=== PATIENT | male | born 1985 | race Hispanic/Latino ===

== ENCOUNTER 2019-01-18 10:41 | Inpatient (IN) | payer OTHER ==
[~2019-01-18] VITALS: Ht 190.5 cm; Wt 129.7 kg
[2019-01-18 11:25] LABS: APPEARANCE,URINE Clear (CLEAR); BILIRUBIN,URINE Negative (NEGATIVE); COLOR,URINE Yellow (YELLOW); GLUCOSE, URINE (UA) >=1000 mg/dL (NEGATIVE); KETONES,URINE >=80 mg/dL (NEGATIVE); LEUKOCYTE ESTERASE ,URINE Negative (NEGATIVE); NITRATE,URINE Negative (NEGATIVE); OCCULT BLOOD,URINE Trace (NEGATIVE); PH,URINE 5.5 (5.0-8.0); PROTEIN,URINE POS 1+ mg/dL (NEGATIVE); UROBILINOGEN,URINE 0.2 mg/dL (0.2-1.0)
[2019-01-18 11:37] LABS: BASOPHILS % (AUTO) 0.9 % (0.0-5.0); EOSINOPHILS % (AUTO) 0.7 % (0.0-8.0); HEMATOCRIT 48.9 % (42-54); LYMPHOCYTES % (AUTO) 29.9 % (21.0-51.0); MEAN CORPUSCULAR HGB CONC 34.8 g/dL (32.0-36.0); MEAN CORPUSCULAR VOLUME 86.2 fL (79-99); MONOCYTES % (AUTO) 9.1 % (3.0-13.0); NEUTROPHILS % (AUTO) 59.4 % (40.0-77.0); PLATELET COUNT (AUTO) 211 K/uL (130-400); RED BLOOD CELL COUNT(AUTO) 5.67 MIL/uL (4.50-6.20); RED CELL DISTRIBUTION WIDTH 13.8 % (11.0-15.5); WHITE BLOOD COUNT (AUTO) 8.6 K/uL (4.8-10.8)
[2019-01-18 11:43] LABS: BACTERIA,URINE Few /HPF (None Seen); RBC,URINE 0-1 /HPF (0-1)
[2019-01-18 11:44] LABS: SQUAMOUS EPITHELIAL CELL,UR 0-2 /HPF (0-2); WBC,URINE 0-1 /HPF (0-1)
[2019-01-18 12:01] LABS: ALBUMIN 4.7 g/dL (3.5-5.0); BILIRUBIN,TOTAL 1.8 mg/dL (0.2-1.0); CREATININE 1.1 mg/dL (0.5-1.5); POTASSIUM 3.6 mmol/L (3.5-5.1); TOTAL PROTEIN, SERUM 8.5 g/dL (6.0-8.3)
[2019-01-18 13:13] LABS: ABG OXYGEN SATURATION 71.2 % (95.0-99.0); BASE EXCESS,VENOUS BLOOD GAS -3.7 (-2.0-3.0); HCO3,VENOUS BLOOD GAS 21.1 (21.0-28.0); PCO2,VENOUS BLOOD GAS 38 (35-48); PH,VENOUS BLOOD GAS 7.366 (7.350-7.450)
[2019-01-18] MEDS ORDERED: HYDRALAZINE HCL 20 MG/ML VIAL IV PRN (14:15)
[2019-01-18] MEDS ORDERED: ONDANSETRON HCL 4 MG/2 ML VIAL IV PRN (14:15)
[2019-01-18] MEDS ORDERED: ACETAMINOPHEN 325 MG TAB PO PRN ×2 (14:15)
[2019-01-18 15:19] LABS: HEMOGLOBIN A1C 10.5 % (4.0-6.0)
[2019-01-18 15:25] VITALS: BP 144/101
[2019-01-18] MEDS: SODIUM CHLORIDE 0.9% 1000ML 1,000 ML IV SCH ×2 (16:15→21:27)
[2019-01-18] MEDS: GLIPIZIDE 5 MG TABLET PO SCH (16:15)
[2019-01-18] MEDS: METFORMIN HCL 500 MG TABLET PO SCH (16:15)
[2019-01-18] MEDS: LOSARTAN 50 MG TABLET PO SCH (18:00)
[2019-01-18] MEDS ORDERED: LOSARTAN 50 MG TABLET ONE (18:01)
[2019-01-18] MEDS: INSULIN HUMULIN R 100 UNIT/ML 3ML SQ SCH ×2 (18:03→21:32)
[2019-01-18 20:00] VITALS: BP 150/82
--- NOTE | 2019-01-18 20:00 | NUR ---
ASSESSMENT NOTE PATIENT AWAKE, ALERT, OX3, NO SOB,NO C/O PAIN AT THIS TIME, TEACH PATIENT PLAN OF CARE AND EXPECTED OUTCOME, , EXTENSIVE DISCUSSION REGARDING NEW ONSET DIABETES, TEACHING REGARDING MEAL PLAN, MEDICATION REGIMEN , FOLLOW UP APPOINTMENT , IMPORTANCE OF GLUCOSE CONTROL, HGAIC PARAMETERS AND POSSIBLE COMPLICATIONS IF BLOOD SUGARS NOT CONTROLLED, BOTH PATIENT AND FAMILY VERBALIZE UNDERSTANDING VIA TEACH BACK
[2019-01-18] MEDS ORDERED: INSULIN GLARGINE 100 UNITS/ML 10 ML VIAL SQ SCH (21:00)
[2019-01-18] MEDS: METOPROLOL TARTRATE 25 MG TAB PO SCH (21:26)
[2019-01-18] MEDS: ATORVASTATIN CALCIUM 40 MG TABLET PO SCH (21:26)
[2019-01-18] MEDS: FAMOTIDINE/PF 20 MG/2 ML VIAL IV SCH (21:26)
[2019-01-19] VITALS (7 sets, daily range): BP systolic 124–150; BP diastolic 53–81
[2019-01-19 04:38] LABS: ALBUMIN 3.1 g/dL (3.5-5.0); BILIRUBIN,TOTAL 0.9 mg/dL (0.2-1.0); CREATININE 0.8 mg/dL (0.5-1.5); POTASSIUM 3.3 mmol/L (3.5-5.1); TOTAL PROTEIN, SERUM 5.8 g/dL (6.0-8.3)
[2019-01-19] MEDS: SODIUM CHLORIDE 0.9% 1000ML 1,000 ML IV SCH (05:37)
[2019-01-19] MEDS ORDERED: POTASSIUM CHLORIDE 20MEQ/100ML 100 ML IV PRN (06:00)
[2019-01-19] MEDS ORDERED: POTASSIUM CHLORIDE 10% ELIXIR 20 MEQ/15 ML UDCUP PO PRN (06:00)
[2019-01-19] MEDS ORDERED: LIDOCAINE HCL-MPF 1% 2ML VIAL IVP PRN (06:00)
[2019-01-19] MEDS: INSULIN HUMULIN R 100 UNIT/ML 3ML SQ SCH ×4 (06:16→20:34)
[2019-01-19] MEDS ORDERED: POTASSIUM CHLORIDE 20 MEQ ERTAB PO ONE (06:17)
[2019-01-19] MEDS: GLIPIZIDE 5 MG TABLET PO SCH ×2 (06:18→16:13)
[2019-01-19] MEDS: MAGNESIUM 2GM PREMIX 50ML 50 ML IV PRN (06:47)
[2019-01-19] MEDS: METFORMIN HCL 500 MG TABLET PO SCH ×3 (09:09→16:13)
[2019-01-19] MEDS: LOSARTAN 50 MG TABLET PO SCH (09:10)
[2019-01-19] MEDS: POTASSIUM CHLORIDE 20 MEQ ERTAB PO PRN ×2 (09:10→11:33)
[2019-01-19] MEDS: METOPROLOL TARTRATE 25 MG TAB PO SCH ×2 (09:10→20:35)
[2019-01-19] MEDS: FAMOTIDINE/PF 20 MG/2 ML VIAL IV SCH ×2 (09:10→20:35)
[2019-01-19] MEDS: ENOXAPARIN SODIUM 40 MG/0.4 ML SYRINGE SQ SCH (09:11)
[2019-01-19] MEDS: ATORVASTATIN CALCIUM 40 MG TABLET PO SCH (20:35)
[2019-01-19] MEDS ORDERED: INSULIN GLARGINE 100 UNITS/ML 10 ML VIAL SQ SCH (21:00)
[2019-01-20 03:00] VITALS: BP 117/65
[2019-01-20 04:39] LABS: ALBUMIN 3.2 g/dL (3.5-5.0); BILIRUBIN,TOTAL 0.9 mg/dL (0.2-1.0); CREATININE 0.7 mg/dL (0.5-1.5); MAGNESIUM 1.8 mg/dL (1.80-2.40); POTASSIUM 3.2 mmol/L (3.5-5.1)
[2019-01-20] MEDS: MAGNESIUM 2GM PREMIX 50ML 50 ML IV PRN (06:00)
[2019-01-20] MEDS: POTASSIUM CHLORIDE 20 MEQ ERTAB PO PRN ×3 (06:00→13:07)
[2019-01-20] MEDS: GLIPIZIDE 5 MG TABLET PO SCH (06:32)
[2019-01-20] MEDS: INSULIN HUMULIN R 100 UNIT/ML 3ML SQ SCH ×2 (07:05→12:00)
[2019-01-20 08:05] VITALS: BP 147/91
[2019-01-20] MEDS: LOSARTAN 50 MG TABLET PO SCH (08:36)
[2019-01-20] MEDS: METFORMIN HCL 500 MG TABLET PO SCH ×2 (08:36→13:07)
[2019-01-20] MEDS: METOPROLOL TARTRATE 25 MG TAB PO SCH (08:36)
[2019-01-20] MEDS: FAMOTIDINE/PF 20 MG/2 ML VIAL IV SCH (08:36)
[2019-01-20] MEDS: ENOXAPARIN SODIUM 40 MG/0.4 ML SYRINGE SQ SCH (08:37)
[2019-01-20 12:00] VITALS: BP 127/70
--- NOTE | 2019-01-20 12:01 | NUR ---
Diet Education RD Provided Diet education for new onset Diabetes. RD also emphasized importance of exercise. RD provided and reviewed reference materials and handouts with patient. Patient verbalized understanding. Patient with no questions at this time. RD to continue to monitor. Addendum: 01/20/19 at [address] RD Amended: Links added.
[2019-01-20 15:55] VITALS: BP 135/79
[2019-01-20] MEDS ORDERED: ATOR40TA69 PO (16:25)
[2019-01-20] MEDS ORDERED: GLIP5TAB11 PO (16:25)
[2019-01-20] MEDS ORDERED: METO25 PO (16:25)
[2019-01-20] MEDS ORDERED: LOSA50TA2 PO (16:25)
[2019-01-20] MEDS ORDERED: METF750T2 PO (16:26)
--- NOTE | 2019-01-20 18:02 | NUR ---
DISCHARGE DISCHARGE TEACHING DONE WITH PATIENT AND USING TEACHBACK METHOD, VERBALIZED UNDERSTANDING. NO NOTED SOB OR DISTRESS. DIABETIC TEACHING DONE WITH PATIENT VERBALIZED UNDERSTANDING. DIETARY TEACHING DONE PRIOR TO DISCHARGE HOME. IV REMOVED,C ATH TIP INTACT. PENDING TO BE TRANSFERRED OUT VIA PRIVATE VEHICLE.
== END 2019-01-20 18:06 | disposition home or self-care (01) | DRG 638 ==
LOC: EDH 10:41 → EDHIP 14:15 → 4AH 15:24
PROVIDERS: ADMIT Internal Medicine; ATTEND Internal Medicine
DX: E11.00 Type 2 diabetes mellitus with hyperosmolarity without nonketotic hyperglycemic-hyperosmolar coma (NKHHC) (principal); E87.1 Hypo-osmolality and hyponatremia; N17.9 Acute kidney failure, unspecified; E66.9 Obesity, unspecified; E78.5 Hyperlipidemia, unspecified; I10 Essential (primary) hypertension; K76.0 Fatty (change of) liver, not elsewhere classified; Z68.35 Body mass index [BMI] 35.0-35.9, adult; Z82.3 Family history of stroke; Z82.49 Family history of ischemic heart disease and other diseases of the circulatory system; Z83.3 Family history of diabetes mellitus; Z86.73 Personal history of transient ischemic attack (TIA), and cerebral infarction without residual deficits
CPT/HCPCS: 36415; 36600; 80053; 80061; 81001; 82009; 82803; 82948; 83036; 83735; 85025; 93005; G0378; J1650; J1815; J3475; J3490